=== PATIENT | male | born 1955 | race Caucasian/White ===

== ENCOUNTER 2017-08-30 12:28 | Emergency (ER) | payer OTHER ==
--- NOTE | 2017-08-30 12:43 | PDOC ---
History of Present Illness - General Chief Complaint: Laceration Stated Complaint: UPPER LIP LACERATION Time Seen by Provider: 08/30/17 12:33 History Source: Patient Exam Limitations: No Limitations - History of Present Illness Initial Comments: 08/30/17 12:41 61 y/o male sustained a lip laceration to the upper lip while playing basketball this morning. No LOC. UTD with Tetanus. No fever or chills. No neck pain. Timing/Duration: reports: just prior to arrival Severity: Yes: mild Past History - Past Medical History Allergies/Adverse Reactions: Allergies Allergy/AdvReac Type Severity Reaction Status Date / Time Penicillins Allergy Mild Itching Verified 08/30/17 12:32 Home Medications: Ambulatory Orders Levothyroxine Sodium [Synthroid] 200 mcg PO DAILY 08/30/17 Review of Systems - Review of Systems Able to Perform ROS?: Yes Is the patient limited Djib[place]ian proficient: No Constitutional: No: Chills, Fever Respiratory: No: Cough Integumentary: No: Erythema All Other Systems: Reviewed and Negative *Physical Exam - Physical Exam General Appearance: Yes: Nourished, Appropriately Dressed. No: Apparent Distress HEENT: positive: EOMI, BERTIN, Normal ENT Inspection, Normal Voice, Symmetrical Neck: positive: Trachea midline, Normal Thyroid, Supple. negative: Tender, Rigid Respiratory/Chest: positive: Lungs Clear, Normal Breath Sounds Cardiovascular: positive: Regular Rhythm, Regular Rate, S1, S2 Vascular Pulses: Femoral (R): 4+, Femoral (L): 4+, Carotid (R): 4+, Carotid (L) : 4+, Dorsalis-Pedis (R): 4+, Doralis-Pedis (L): 4+ Integumentary: positive: Normal Color, Dry, Warm, Other (small 0.5 cm lip upper laceration non bleeding with mild swelling noted) Neurologic: positive: hide tanner II-XII NML intact, Fully Oriented, Alert, Normal Mood/ Affect, Normal Response, Motor Strength 5/5 Procedures - Laceration/Wound Repair Right Upper Lip Wound Length: to 2.5 cm Wound Explored: clean, no foreign body present Wound's Depth, Shape: superficial Irrigated w/ Saline: Yes Betadine Prep: No Anesthesia: 1% Lidocaine (1 cc injected into upper lip wound) Wound Repaired With: Sutures (1 ) Suture Size/Type: 3:0, other (chromic) Number of Sutures: 1 Layer Closure: No Progress: 08/30/17 13:24 1 chromic #3 used to close upper lip, pt tolerated procedure well. Progress Note - Progress Note Progress Note: Lip laceration will require suturing. *DC/Admit/Observation/Transfer Diagnosis at time of Disposition: Laceration of lip Qualifiers: Encounter type: initial encounter Qualified Code(s): S01.511A - Laceration without foreign body of lip, initial encounter - Discharge Dispostion Disposition: HOME Condition at time of disposition: Stable Admit: No - Referrals - Patient Instructions Printed Discharge Instructions: DI for Laceration Repair Additional Instructions: Ice, Tylenol, rest Sutures will dissolve Cold food/liquids first 24 hrs If worsen return to ER - Post Discharge Activity
[2017-08-30 12:46] VITALS: BP 115/81; PULSE 68; TEMP 98.3; BMI 26.4
== END 2017-08-30 13:30 | disposition home or self-care (01) ==
LOC: FER 12:28
PROC: 0CQ0XZZ Repair Upper Lip, External Approach (ICD-10-PCS; principal; 2017-08-30)
DX: S01.511A Laceration without foreign body of lip, initial encounter (principal); W21.05XA Struck by basketball, initial encounter; Y93.67 Activity, basketball; Y92.9 Unspecified place or not applicable
CPT/HCPCS: 99282-25

== ENCOUNTER 2018-08-09 18:38 | Observation (INO) | payer OTHER ==
--- NOTE | 2018-08-09 19:25 | PDOC ---
History of Present Illness <Kayla Reeves - Last Filed: 08/09/18 22:45> - History of Present Illness Initial Comments: 08/09/18 22:38 The patient is a 62 year old male, with a significant PMH of fainting, who presents to the emergency department s/p 2 episodes of fainting approximately 1.5 hour ago. Patient notes he was on the train for approximately twenty minutes , when he began feeling progressively worsening nausea during his trip. He reports that he tried to get off the train to get some fresh air, and immediately fainted in the aisle of the train as soon as he stood up without any preceding symptoms.Pt states he lost consciousness for a few seconds. As per patient's , she reports that a witness said he fell straight backwards and hit his head on the floor. Witness also states that a few minutes after he regained consciousness, he sat down and then fainted a second time without trigger or warning. Per the witness, pt was very pale during episode. Patient states that he feels dehydrated, and notes he only had one bottle of water today. Patient notes that he has had multiple episodes of fainting previously: 1 episode over 50 years ago without any trigger, 1 episode over 40 years ago secondary to heat, alcohol consumption, and minimal food intake, and 1 episode 18 years ago secondary to back pain. He denies sick contacts, recent travel, generalized weakness, or LE edema. As per his daughter, he has been more stressed than usual this week related to his work. The patient denies palpitations, chest pain, shortness of breath, or headache. Denies fever, chills, vomit, diarrhea and constipation. Denies dysuria, frequency, urgency and hematuria. Allergies:Penicillins Past surgical history: None reported Social history: No reported <Timbo Sandhu - Last Filed: 08/09/18 23:12> - General Chief Complaint: Syncope/Near Syncope Stated Complaint: SYNCOPE Time Seen by Provider: 08/09/18 19:07 Past History <Kayla Reeves - Last Filed: 08/09/18 22:45> - Past Medical History COPD: No Thyroid Disease: Yes - Immunization History Immunization Up to Date: Yes - Suicide/Smoking/Psychosocial Hx Smoking History: Never smoked Have you smoked in the past 12 months: No Information on smoking cessation initiated: No Hx Alcohol Use: No Drug/Substance Use Hx: No Substance Use Type: None <Timbo Sandhu - Last Filed: 08/09/18 23:12> - Past Medical History Allergies/Adverse Reactions: Allergies Allergy/AdvReac Type Severity Reaction Status Date / Time Penicillins Allergy Mild Itching Verified 08/09/18 18:49 Home Medications: Ambulatory Orders Levothyroxine Sodium [Synthroid] 200 mcg PO DAILY 08/30/17 Review of Systems - Review of Systems Comments:: 08/09/18 22:42 GENERAL/CONSTITUTIONAL: +Dehydrated. +Pale. No fever or chills. No weakness. HEAD, EYES, EARS, NOSE AND THROAT: No change in vision. No ear pain or discharge. No sore throat. GASTROINTESTINAL: +Nausea. No vomiting, diarrhea or constipation. GENITOURINARY: No dysuria, frequency, or change in urination. CARDIOVASCULAR: No chest pain or shortness of breath. RESPIRATORY: No cough, wheezing, or hemoptysis. MUSCULOSKELETAL: No joint or muscle swelling or pain. No neck or back pain. SKIN: No rash NEUROLOGIC: +S/p 2 episodes of fainting. +Dizziness. +Lightheadedness. No headache, vertigo, or change in strength. ENDOCRINE: No increased thirst. No abnormal weight change. HEMATOLOGIC/LYMPHATIC: No anemia, easy bleeding, or history of blood clots. ALLERGIC/IMMUNOLOGIC: No hives or skin allergy. <Zeb Sandhurazakishan - Last Filed: 08/09/18 23:12> *Physical Exam - Vital Signs Last Vital Signs Temp Pulse Resp BP Pulse Ox 98.5 F 64 20 110/76 100 08/09/18 18:48 08/09/18 18:48 08/09/18 18:48 08/09/18 19:49 08/09/18 18:48 <Kayla Reeves - Last Filed: 08/09/18 22:45> - Vital Signs Last Vital Signs Temp Pulse Resp BP Pulse Ox 98.5 F 64 20 129/82 100 08/09/18 18:48 08/09/18 18:48 08/09/18 18:48 08/09/18 18:48 08/09/18 18:48 - Physical Exam Comments: 08/09/18 22:43 GENERAL: Awake, alert, and fully oriented, in no acute distress HEAD: No signs of trauma EYES: PERRLA, EOMI, sclera anicteric, conjunctiva clear ENT: +Dry mucous membranes. Hearing grossly normal, nares patent, oropharynx clear without exudates. NECK: Normal ROM, supple, no lymphadenopathy, JVD, or masses LUNGS: Breath sounds equal, clear to auscultation bilaterally. No wheezes, and no crackles HEART: Regular rate and rhythm, normal S1 and S2, no murmurs, rubs or gallops ABDOMEN: Soft, nontender, normoactive bowel sounds. No guarding, no rebound. No masses EXTREMITIES: Normal range of motion, no edema. No cords, erythema, or tenderness BACK: No midline spinal tenderness in cervical/thoracic/lumbar region NEUROLOGICAL: Normal speech, cranial nerves intact, negative pronator drift, 5/ 5 strength in all 4 extremities, normal sensation to light touch in all 4 extremities, normal cerebellar exam, normal gait, normal tone SKIN: Warm, Dry, normal turgor, no rashes or lesions noted. <Timbo Sandhu - Last Filed: 08/09/18 23:12> Moderate Sedation - Procedure Monitoring Vital Signs: Procedure Monitoring Vital Signs Temperature 98.5 F 08/09/18 18:48 Pulse Rate 64 08/09/18 18:48 Respiratory Rate 20 08/09/18 18:48 Blood Pressure 110/76 08/09/18 19:49 O2 Sat by Pulse Oximetry (%) 100 08/09/18 18:48 <Kayla Reeves - Last Filed: 08/09/18 22:45> - Procedure Monitoring Vital Signs: Procedure Monitoring Vital Signs Temperature 98.5 F 08/09/18 18:48 Pulse Rate 64 08/09/18 18:48 Respiratory Rate 20 08/09/18 18:48 Blood Pressure 129/82 08/09/18 18:48 O2 Sat by Pulse Oximetry (%) 100 08/09/18 18:48 <Zeb Sandhumnkishan - Last Filed: 08/09/18 23:12> Heart Score/ECG Review #1 08/09/18 19:32 Twelve-lead EKG was performed and reviewed by me. NSR, rate 65. Normal axis, incomplete RBBB, no IRIS or TWI <Zeb Sandhumna - Last Filed: 08/09/18 23:12> ED Treatment Course - LABORATORY CBC & Chemistry Diagram: 08/09/18 19:58 08/09/18 19:58 - ADDITIONAL ORDERS Additional order review: Laboratory Results 08/09/18 08/09/18 08/09/18 19:58 19:58 19:58 Sodium 134 L Potassium 4.3 Chloride 94 L Carbon Dioxide 30 H Anion Gap 10 BUN 24 H Creatinine 1.1 Creat Clearance w eGFR > 60 Random Glucose 114 H Calcium 9.3 Magnesium 2.0 Total Bilirubin 0.7 AST 27 ALT 29 Alkaline Phosphatase 86 Troponin I 0.04 B-Natriuretic Peptide 16.4 Total Protein 7.3 Albumin 4.3 TSH 9.85 H 08/09/18 19:58 RBC 4.81 MCV 94.8 MCHC 34.1 RDW 12.8 MPV 10.5 Neutrophils % No Result Required. Lymphocytes % No Result Required. - RADIOLOGY Radiograph Interpretation: EXAM#: TYPE/EXAM: RESULT: [id number] RAD/CHEST X-RAY PORTABLE IMPRESSION: No acute disease. Reported By: Galen Kidd MD 08/09/18 20:55 EXAM#: TYPE/EXAM: RESULT: [id number] CT/HEAD CT WITHOUT CONTRAST IMPRESSION: No evidence of acute intracranial pathology. Reported By: Galen Kidd MD 08/09/18 22:39 EXAM#: TYPE/EXAM: RESULT: [id number] CT/CERVICAL SPINE CT W/O CONTR IMPRESSION: No fracture or acute bony abnormalities. Reported By: Galen Kidd MD 08/09/18 22:44 08/09/18 22:45 - Medications Given in the ED: ED Medications Discontinued Medications Generic Name Dose Route Start Last Admin Trade Name Freq PRN Reason Stop Dose Admin Sodium Chloride 1,000 mls @ 1,000 mls/hr 08/09/18 19:28 08/09/18 20:05 Normal Saline - IV 08/09/18 20:27 1,000 mls/hr ASDIR STA Administration <Kayla Reeves - Last Filed: 08/09/18 22:45> - LABORATORY CBC & Chemistry Diagram: 08/09/18 19:58 08/09/18 19:58 <Timbo Sandhu - Last Filed: 08/09/18 23:12> Medical Decision Making - Medical Decision Making 08/09/18 19:33 62yo M hx syncope, hypothyroidism presents to the ED after 2 syncopal episodes in the setting of nausea. Vitals in ED wnl. Exam wnl other than dry MM. EKG non ischemic. Likely vasovagal syncope vs orthostatic syncope in the setting of dehydration. Also on ddx is cardiac arrhythmia. Plan to check orthostatics, labs , hydrate, monitor on tele and reassess. 08/09/18 23:09 Orthostatics negative Labs with leukocytosis to 17 CXR/UA with no infection CMP with elevated BUN, likely pre-renal Pt s/p 1L NS, feels better CTH/C-spine negative In light of sudden syncope, leukocytosis, negative orthostatics, plan for tele obs admission Case discussed with GANG PUSHER Cony Hayward, pt admitted to Dr. Lewis Case discussed in detail with admitting physician including history, physical exam and ancillary studies. Admitting physician has assumed care for the patient, will follow all pending diagnostics and will complete the evaluation and treatment. <Timbo Sandhu - Last Filed: 08/09/18 23:12> *DC/Admit/Observation/Transfer - Attestations Scribe Attestion: 08/09/18 22:24 Documentation prepared by RAIN Vega, acting as medical field representative for Timbo Sandhu MD. <Kayla Reeves - Last Filed: 08/09/18 22:45> - Discharge Dispostion Decision to Admit order: Yes - Attestations Physician Attestion: 08/09/18 23:12 I, Dr. Timbo Sandhu MD, attest that this document has been prepared under my direction and personally reviewed by me in its entirety. I further attest, that it accurately reflects all work, treatment, procedures and medical decision -making performed by me. <Timbo Sandhu - Last Filed: 08/09/18 23:12> Diagnosis at time of Disposition: Nausea, Syncope, Fall
[2018-08-09] MEDS ORDERED: SODIUM CHLORIDE 1,000 ML IV STA (19:28)
[2018-08-09 20:22] LABS: HEMATOCRIT 45.6 % (35.4-49); HEMOGLOBIN 15.6 GM/dl (11.7-16.9); MCH 32.4 pg (25.7-33.7); MCHC 34.1 g/dl (32.0-35.9); MEAN CELL VOLUME 94.8 fl (80-96); MEAN PLT VOLUME 10.5 fl (7.5-11.1); PLATELET COUNT 217 K/MM3 (134-434); RBC 4.81 M/mm3 (4.00-5.60); RDW 12.8 % (11.9-15.9); WHITE BLOOD COUNT 16.8 K/mm3 (4.0-10.8)
[2018-08-09 20:28] LABS: ALBUMIN 4.3 g/dl (3.5-5.0); ALK PHOS 86 U/L (32-92); ANION GAP 10 MMOL/L (8-16); BILIRUBIN,TOTAL 0.7 mg/dl (0.2-1.0); BLOOD UREA NITROGEN 24 mg/dl (7-18); CALCIUM 9.3 mg/dl (8.4-10.2); CHLORIDE 94 mmol/L (98-107); CO2 30 mmol/L (22-28); CREATININE 1.1 mg/dl (0.6-1.3); GLUCOSE,RANDOM 114 mg/dl (74-106); POTASSIUM 4.3 mmol/L (3.5-5.1); SGOT/AST 27 U/L (10-42); SGPT/ALT 29 U/L (10-40); SODIUM 134 mmol/L (136-145); TOT PROT 7.3 g/dl (6.4-8.3)
[2018-08-09 21:06] LABS: PLATELET ESTIMATE ADEQUATE
[2018-08-09 22:06] LABS: N-TERMINAL BNP 16.4 pg/ml (5-125)
[2018-08-09 22:39] LABS: PH,URINE 6.5 (4.5-8); URINE APPEARANCE Clear; URINE BILIRUBIN Negative (NEGATIVE); URINE COLOR Yellow; URINE GLUCOSE (UA) Negative (NEGATIVE); URINE KETONE Negative (NEGATIVE); URINE LEUK ESTERASE Negative (NEGATIVE); URINE NITRITE Negative (NEGATIVE); URINE PROTEIN Negative (NEGATIVE); URINE UROBILINOGEN 0.2 (0.2-1.0)
--- NOTE | 2018-08-09 23:30 | HP ---
CHIEF COMPLAINT: Syncope PCP: Doctor Not On Staff HISTORY OF PRESENT ILLNESS: 62 y/o man with a past medical history of Hypothyroidism, Syncope (2000). Who presents to the ED for syncopal episodes x2 today. Patient reports while on the [employer] train to home, he reports feeling nauseous, dizzy, flushed then, "clammy". Earlier in the evening he had a feeling of fullness. He reports when he stood up to get his jacket and belongings he passed out hitting his occiput. He reports when he came to he was assisted to a chair he reports slumping over having a second syncopal episode. Patient reports that the events occurred secs to < 1 minute. Patient had good memory recall of both events. Patient reports ambulating off the train, drinking some water. Patient reports being able to drive himself home, without incident. Patient denies fever, cough, VARGAS, SOB, CP, palpitations, AP, vomiting, diarrhea, melena, hematochezia, hematuria, dysuria. ER course was notable for: (1) Head CT- neg ICH (2) Troponin 0.04 (3) Chest Xray- no acute disease (4) EKG- NSR with incomplete RBBB (5) TSH 9.85 Recent Travel: None PAST MEDICAL HISTORY: See HPI PAST SURGICAL HISTORY: Thyroidectomy Tonsillectomy Social History: Smoking: Denies Alcohol: Denies Drugs: Denies Lives with Spouse, employed Computer Hardware Developer Family History: Mother: DM Father: CAD, double bypass, , CHF age 88 Paternal Uncle: Pancreatic Ca Allergies Penicillins Allergy (Mild, Verified 08/09/18 18:49) Itching HOME MEDICATIONS: Home Medications Medication Instructions Recorded Levothyroxine Sodium [Synthroid] 200 mcg PO DAILY 08/30/17 REVIEW OF SYSTEMS CONSTITUTIONAL: diaphoresis Absent: fever, chills, generalized weakness, malaise, loss of appetite, weight change HEENT: Absent: rhinorrhea, nasal congestion, throat pain, throat swelling, difficulty swallowing, mouth swelling, ear pain, eye pain, visual changes CARDIOVASCULAR: syncope Absent: chest pain, palpitations, irregular heart rate, lightheadedness, peripheral edema RESPIRATORY: Absent: cough, shortness of breath, dyspnea with exertion, orthopnea, wheezing, stridor, hemoptysis GASTROINTESTINAL: Absent: abdominal pain, abdominal distension, nausea, vomiting, diarrhea, constipation, melena, hematochezia GENITOURINARY: Absent: dysuria, frequency, urgency, hesitancy, hematuria, flank pain, genital pain MUSCULOSKELETAL: Absent: myalgia, arthralgia, joint swelling, back pain, neck pain SKIN: Absent: rash, itching, pallor HEMATOLOGIC/IMMUNOLOGIC: Absent: easy bleeding, easy bruising, lymphadenopathy, frequent infections ENDOCRINE: Absent: unexplained weight gain, unexplained weight loss, heat intolerance, cold intolerance NEUROLOGIC: dizziness Absent: headache, focal weakness or paresthesias, unsteady gait, seizure, mental status changes, bladder or bowel incontinence PSYCHIATRIC: Absent: anxiety, depression, suicidal or homicidal ideation, hallucinations. PHYSICAL EXAMINATION Vital Signs - 24 hr 08/09/18 08/09/18 08/09/18 18:48 19:45 19:47 Temperature 98.5 F Pulse Rate 64 Respiratory 20 Rate Blood Pressure 129/82 Blood Pressure 111/75 116/76 [Left] O2 Sat by Pulse 100 Oximetry (%) 08/09/18 19:49 Temperature Pulse Rate Respiratory Rate Blood Pressure Blood Pressure 110/76 [Left] O2 Sat by Pulse Oximetry (%) GENERAL: Awake, alert, and fully oriented, in no acute distress. HEAD: Normal with no signs of trauma. EYES: Pupils equal, round and reactive to light, extraocular movements intact, sclera anicteric, conjunctiva clear. No lid lag. EARS, NOSE, THROAT: Dry mucous membranes. Ears normal, nares patent, oropharynx clear without exudates. NECK: Normal range of motion, supple without lymphadenopathy, JVD, or masses. LUNGS: Breath sounds equal, clear to auscultation bilaterally. No wheezes, and no crackles. No accessory muscle use. HEART: Regular rate and rhythm, normal S1 and S2 without murmur, rub or gallop. ABDOMEN: Soft, nontender, not distended, normoactive bowel sounds, no guarding, no rebound, no masses. No hepatomegaly or splenomegaly. MUSCULOSKELETAL: Normal range of motion at all joints. No bony deformities or tenderness. No CVA tenderness. UPPER EXTREMITIES: 2+ pulses, warm, well-perfused. No cyanosis. No clubbing. No peripheral edema. LOWER EXTREMITIES: 2+ pulses, warm, well-perfused. No calf tenderness. No peripheral edema. NEUROLOGICAL: Cranial nerves II-XII intact. Normal speech. Gait not observed. PSYCHIATRIC: Cooperative. Good eye contact. Appropriate mood and affect. SKIN: Warm, dry, normal turgor, no rashes or lesions noted, normal capillary refill. Laboratory Results - last 24 hr 08/09/18 08/09/18 08/09/18 19:58 19:58 19:58 WBC 16.8 H RBC 4.81 Hgb 15.6 Hct 45.6 MCV 94.8 MCH 32.4 MCHC 34.1 RDW 12.8 Plt Count 217 MPV 10.5 Absolute Neuts (auto) 15.5 Neutrophils % No Result Required. Neutrophils % (Manual) 95.0 H* Lymphocytes % No Result Required. Lymphocytes % (Manual) 5.0 L Platelet Estimate Adequate Sodium 134 L Potassium 4.3 Chloride 94 L Carbon Dioxide 30 H Anion Gap 10 BUN 24 H Creatinine 1.1 Creat Clearance w eGFR > 60 Random Glucose 114 H Calcium 9.3 Magnesium Total Bilirubin 0.7 AST 27 ALT 29 Alkaline Phosphatase 86 Troponin I 0.04 B-Natriuretic Peptide 16.4 Total Protein 7.3 Albumin 4.3 TSH Urine Color Urine Appearance Urine pH Ur Specific [place] Urine Protein Urine Glucose (UA) Urine Ketones Urine Blood Urine Nitrite Urine Bilirubin Urine Urobilinogen Ur Leukocyte Esterase 08/09/18 08/09/18 19:58 22:30 WBC RBC Hgb Hct MCV MCH MCHC RDW Plt Count MPV Absolute Neuts (auto) Neutrophils % Neutrophils % (Manual) Lymphocytes % Lymphocytes % (Manual) Platelet Estimate Sodium Potassium Chloride Carbon Dioxide Anion Gap BUN Creatinine Creat Clearance w eGFR Random Glucose Calcium Magnesium 2.0 Total Bilirubin AST ALT Alkaline Phosphatase Troponin I B-Natriuretic Peptide Total Protein Albumin TSH 9.85 H Urine Color Yellow Urine Appearance Clear Urine pH 6.5 Ur Specific [place] 1.020 Urine Protein Negative Urine Glucose (UA) Negative Urine Ketones Negative Urine Blood Negative Urine Nitrite Negative Urine Bilirubin Negative Urine Urobilinogen 0.2 Ur Leukocyte Esterase Negative ASSESSMENT/PLAN: This is a 62 y/o man with a PMHx of Hypothyroid s/p Thyroidectomy (2002). Placed on Telemetry Observation for Syncope for further evaluation of their emergent condition. Plan: See Problem List FEN PO fluids as tolerated Replete lytes as indicated Regular Diet DVT ppx OOB SCDs Consider AC if LOS > 48 hrs Code Status: Full Code Dispo: Observation Problem List - Problem (1) Syncope Assessment/Plan: Likely due to Arrhythmia vs Dehydration Cardiac monitoring Serial Enzymes Head CT- neg ICH, no mass or lesions Chest Xray- no acute pathology EKG- NSR with incomplete RBBB, no other study available to compare Appreciate Cardiology consult Appreciate Neurology consult Echo in am r/o any significant abnormalities Carotid Doppler r/o Stenosis CBC, BMP, Lipid Panel, HgbA1c in am Neurochecks Fall Precautions Seizure Precautions Gentle IVF Code(s): R55 - SYNCOPE AND COLLAPSE (2) Fall Assessment/Plan: Likely secondary to Syncopal Episode Head CT- neg ICH C- Spine Xray- neg Fx or subluxation Fall Precautions Code(s): W19.XXXA - UNSPECIFIED FALL, INITIAL ENCOUNTER (3) Hypothyroidism Assessment/Plan: TSH 9.85 Will increase Levothyroxine from 200mcg to 225mcg Patient will need to f/u with PCP Code(s): E03.9 - HYPOTHYROIDISM, UNSPECIFIED Visit type - Emergency Visit Emergency Visit: Yes ED Registration Date: 08/09/18 Care time: The patient presented to the Emergency Department on the above date and was hospitalized for further evaluation of their emergent condition. - New Patient This patient is new to me today: Yes Date on this admission: 08/09/18 - Critical Care Critical Care patient: No
[2018-08-10] MEDS ORDERED: SODIUM CHLORIDE 1,000 ML IV SCH (01:30)
[2018-08-10] MEDS ORDERED: LEVOTHYROXINE NA 200 MCG TABLET PO SCH (07:00)
[2018-08-10] MEDS ORDERED: LEVOTHYROXINE 125 MCG, LEVOTHYROXINE 100 MCG PO SCH (07:15)
[2018-08-10 07:21] LABS: INR 1.06 (0.83-1.09); PROTHROMBIN TIME (PATIENT) 12.5 SEC (9.7-13.0)
[2018-08-10] MEDS ORDERED: LEVOTHYROXINE NA 100 MCG TABLET (FP) ONE (07:21)
[2018-08-10] MEDS ORDERED: LEVOTHYROXINE NA 125 MCG TABLET (FP) ONE (07:21)
[2018-08-10 07:37] LABS: ANION GAP 8 MMOL/L (8-16); BLOOD UREA NITROGEN 17 mg/dL (7-18); CALCIUM 8.4 mg/dL (8.5-10.1); CHLORIDE 101 mmol/L (98-107); CO2 28 mmol/L (21-32); CREATININE 0.9 mg/dL (0.55-1.3); GLUCOSE,RANDOM 93 mg/dL (74-106); POTASSIUM 4.2 mmol/L (3.5-5.1); SODIUM 137 mmol/L (136-145)
[2018-08-10 07:56] LABS: BASO % 0.3 % (0-2.0); EOS % 0.5 % (0-4.5); HEMATOCRIT 40.7 % (35.4-49); HEMOGLOBIN 14.3 GM/dL (11.7-16.9); LYMPH % 4.6 % (8-40); MCH 32.5 pg (25.7-33.7); MCHC 35.1 g/dl (32.0-35.9); MEAN CELL VOLUME 92.6 fl (80-96); MEAN PLT VOLUME 10.5 fl (7.5-11.1); MONO % 3.7 % (3.8-10.2); NEUT % 90.9 % (42.8-82.8); PLATELET COUNT 179 K/MM3 (134-434); RBC 4.39 M/mm3 (4.00-5.60); RDW 13.7 % (11.9-15.9); WHITE BLOOD COUNT 11.7 K/mm3 (4.0-10.0)
[2018-08-10] MEDS ORDERED: MULTIVITAMINS (DAILY MVI) TABLET (FP) PO SCH (10:00)
--- NOTE | 2018-08-10 10:05 | EKG ---
Test Reason : Blood Pressure : / mmHG Vent. Rate : 065 BPM Atrial Rate : 065 BPM P-R Int : 172 ms QRS Dur : 116 ms QT Int : 436 ms P-R-T Axes : 078 068 043 degrees QTc Int : 453 ms POOR DATA QUALITY, INTERPRETATION MAY BE ADVERSELY AFFECTED NORMAL SINUS RHYTHM POSSIBLE LEFT ATRIAL ENLARGEMENT INCOMPLETE RIGHT BUNDLE BRANCH BLOCK BORDERLINE ECG NO PREVIOUS ECGS AVAILABLE Confirmed by Pawan Joy MD ([id number]) on 08/10/2018 10:05:20 AM Referred By: DR LIM Confirmed By:Pawan Joy MD
--- NOTE | 2018-08-10 10:42 | CON.NEURO ---
Consult - Alcohol/Substance Use Hx Alcohol Use: No - Smoking History Smoking history: Never smoked Have you smoked in the past 12 months: No Home Medications - Allergies Allergies/Adverse Reactions: Allergies Allergy/AdvReac Type Severity Reaction Status Date / Time Penicillins Allergy Mild Itching Verified 08/09/18 18:49 - Home Medications Home Medications: Ambulatory Orders Levothyroxine Sodium [Synthroid] 200 mcg PO DAILY 08/30/17 Physical Exam-Neuro Vital Signs: Vital Signs Temperature 98.5 F 08/09/18 18:48 Pulse Rate 85 08/10/18 08:40 Respiratory Rate 18 08/10/18 08:40 Blood Pressure 122/78 08/10/18 08:40 O2 Sat by Pulse Oximetry (%) 99 08/10/18 08:40 Labs: CBC, BMP 08/10/18 06:00 08/10/18 06:00 INR, PTT INR 1.06 (0.83-1.09) 08/10/18 06:00 Assessment/Plan cc Episode of passing out on Aug HPI 62 year old male history of Hypothyroidism, 4-5 syncope over 25 year in his life. He was coming back from work and fell nauseated and passed out. He lost consiousness and hit his head. He denies any headhace, dysphagia, dysarthria, diplopia. There is no motor weakness. He denies any Post ictal confusion, incontinence , tongue bite. His ct head and carotid ultrasound si normal. PMH as above. PAST SURGICAL HISTORY: Thyroidectomy Tonsillectomy Social History: No toxic Habits Lives with Spouse, employed Commercial Artist Lettering Family History: Mother: DM Father: CAD, double bypass, , CHF age 88 Paternal Uncle: Pancreatic Ca Allergies Penicillins Allergy (Mild, Verified 08/09/18 18:49) Itching HOME MEDICATIONS: Home Medications Medication Instructions Recorded Levothyroxine Sodium [Synthroid] 200 mcg PO DAILY 08/30/17 ROS reviewed in chart NEUROLOGICAL EXAMIATION Alert oriented x 3 speech is normal, no neck stiffness CN all intact , eomi, pupils reactive, no face asymmetry , vf normal by confrontatio, hearing is normal Motor 5/5 all intact, ftn, htn is normal, no rigidity sensation is normal ct head is normal Assessment: 62 year old male history of hypothyroidism, 4-5 syncope in his life time. He had syncopal episode. There is no evidence suggestive of epileptic seizure or stroke PLAN: From neuro point of view , no furhter work up needed - Advice against driving and disclose LOC information to DMV. Thanking you so much Marco Velasco MD
--- NOTE | 2018-08-10 11:34 | CON.CARD ---
Consult Consult Specialty:: Cardiology Referred by:: ER (David Morton) Reason for Consultation:: Cardiac evaluation - History of Present Illness Chief Complaint: Syncope History of Present Illness: Patient is a 62 year old male with underlying history of hypothyroidism on replacement therapy who presents after a syncopal episode yesterday. [facility] [place] [facility] [place] [facility] [employer] when he began to feel nausea, dizziness and clammy feeling. He also felt fullness in his stomach. He stood up to exit the train when he passed out falling backwards hitting the occipital part of his head on the floor of the train. He was helped by fellow passengers and finally got out to his train stop in [place]. He managed to drive home without any incident and when he arrived his saw him to be very pale. His drove him to the hospital for further evaluation. He denies chest pain, SOB or palpitations. He denies paroxysmal nocturnal dyspnea or orthopnea. He denies fever or chills. He denies headache. By the time he arrived to ER, he denied any further nausea, vomiting. He denies diarrhea or abdominal pain. He feels better this am and had a full breakfast. He has had one other episode of syncope but it was due to dehydration. Of note he states he had consumed a lot of sodium over the weekend and drank alcohol. However, he was able to play basketball yesterday without any problem. - History Source History Provided By: Patient, Family Member, Medical Record Limitations to Obtaining History: No Limitations - Past Medical History Endocrine: Yes: Hypothyroidism - Past Surgical History Additional Surgical History: Thyroidectomy - Alcohol/Substance Use Hx Alcohol Use: Yes History of Substance Use: reports: None - Smoking History Smoking history: Never smoked Have you smoked in the past 12 months: No Home Medications - Allergies Allergies/Adverse Reactions: Allergies Allergy/AdvReac Type Severity Reaction Status Date / Time Penicillins Allergy Mild Itching Verified 08/09/18 18:49 - Home Medications Home Medications: Ambulatory Orders Levothyroxine Sodium [Synthroid] 200 mcg PO DAILY 08/30/17 Family Disease History - Family Disease History Family Disease History: Heart Disease: Father (CABG) Other Family History: History of DM Review of Systems - Review of Systems Constitutional: denies: Chills, Fever Cardiovascular: denies: Chest Pain, Palpitations, Shortness of Breath Respiratory: denies: Cough, Hemoptysis, Orthopnea, PND, SOB, SOB on Exertion, Wheezing Gastrointestinal: reports: Nausea. denies: Abdominal Pain, Constipation, Diarrhea, Melena, Rectal Bleeding, Vomiting Genitourinary: denies: Dysuria, Hematuria Musculoskeletal: denies: Back Pain, Joint Pain Neurological: reports: Dizziness, Syncope. denies: Change in Speech, Confusion , Headache, Numbness, Parasthesia, Seizure, Unsteady Gait, Weakness Vital Signs: Vital Signs Temperature 98.5 F 08/09/18 18:48 Pulse Rate 85 08/10/18 08:40 Respiratory Rate 18 08/10/18 08:40 Blood Pressure 122/78 08/10/18 08:40 O2 Sat by Pulse Oximetry (%) 99 08/10/18 08:40 Constitutional: Yes: Well Nourished Eyes: Yes: PERRL HENT: Yes: Atraumatic Neck: Yes: Supple Respiratory: Yes: CTA Bilaterally Gastrointestinal: Yes: Normal Bowel Sounds, Soft. No: Tenderness Cardiovascular: Yes: Regular Rate and Rhythm JVD: No Carotid Bruit: No PMI: Non-Displaced Heart Sounds: Yes: S1, S2. No: Gallop Murmur: No: Systolic Murmur, Diastolic Murmur Edema: No Neurological: Yes: WNL - Other Data Labs, Other Data: CBC, BMP 08/10/18 06:00 08/10/18 06:00 INR, PTT INR 1.06 (0.83-1.09) 08/10/18 06:00 Troponin, BNP 08/09/18 08/09/18 08/09/18 06:36 19:58 19:58 Troponin I 0.03 0.04 B-Natriuretic Peptide 16.4 08/10/18 06:00 Troponin I 0.02 B-Natriuretic Peptide Laboratory Results - last 24 hr 08/09/18 08/09/18 08/09/18 06:36 06:36 19:58 WBC RBC Hgb Hct MCV MCH MCHC RDW Plt Count MPV Absolute Neuts (auto) Neutrophils % Neutrophils % (Manual) Lymphocytes % Lymphocytes % (Manual) Monocytes % Eosinophils % Basophils % Nucleated RBC % Platelet Estimate PT with INR INR Sodium 134 L Potassium 4.3 Chloride 94 L Carbon Dioxide 30 H Anion Gap 10 BUN 24 H Creatinine 1.1 Creat Clearance w eGFR > 60 Random Glucose 114 H Lactic Acid Calcium 9.3 Phosphorus Magnesium Total Bilirubin 0.7 AST 27 ALT 29 Alkaline Phosphatase 86 Troponin I 0.03 B-Natriuretic Peptide 16.4 Total Protein 7.3 Albumin 4.3 TSH Urine Color Yellow Urine Appearance Clear Urine pH 6.5 Ur Specific [place] 1.020 Urine Protein Negative Urine Glucose (UA) Negative Urine Ketones Negative Urine Blood Negative Urine Nitrite Negative Urine Bilirubin Negative Urine Urobilinogen 0.2 Ur Leukocyte Esterase Negative 08/09/18 08/09/18 08/09/18 19:58 19:58 19:58 WBC 16.8 H RBC 4.81 Hgb 15.6 Hct 45.6 MCV 94.8 MCH 32.4 MCHC 34.1 RDW 12.8 Plt Count 217 MPV 10.5 Absolute Neuts (auto) 15.5 Neutrophils % No Result Required. Neutrophils % (Manual) 95.0 H* Lymphocytes % No Result Required. Lymphocytes % (Manual) 5.0 L Monocytes % Eosinophils % Basophils % Nucleated RBC % Platelet Estimate Adequate PT with INR INR Sodium Potassium Chloride Carbon Dioxide Anion Gap BUN Creatinine Creat Clearance w eGFR Random Glucose Lactic Acid Calcium Phosphorus Magnesium 2.0 Total Bilirubin AST ALT Alkaline Phosphatase Troponin I 0.04 B-Natriuretic Peptide Total Protein Albumin TSH 9.85 H Urine Color Urine Appearance Urine pH Ur Specific [place] Urine Protein Urine Glucose (UA) Urine Ketones Urine Blood Urine Nitrite Urine Bilirubin Urine Urobilinogen Ur Leukocyte Esterase 08/10/18 08/10/18 08/10/18 06:00 06:00 06:00 WBC 11.7 H RBC 4.39 Hgb 14.3 Hct 40.7 MCV 92.6 MCH 32.5 MCHC 35.1 RDW 13.7 Plt Count 179 MPV 10.5 Absolute Neuts (auto) 10.7 H Neutrophils % 90.9 H Neutrophils % (Manual) Lymphocytes % 4.6 L Lymphocytes % (Manual) Monocytes % 3.7 L Eosinophils % 0.5 Basophils % 0.3 Nucleated RBC % 0 Platelet Estimate PT with INR 12.50 INR 1.06 Sodium 137 Potassium 4.2 Chloride 101 Carbon Dioxide 28 Anion Gap 8 BUN 17 Creatinine 0.9 Creat Clearance w eGFR > 60 Random Glucose 93 Lactic Acid Calcium 8.4 L Phosphorus 3.0 Magnesium Total Bilirubin AST ALT Alkaline Phosphatase Troponin I B-Natriuretic Peptide Total Protein Albumin TSH Urine Color Urine Appearance Urine pH Ur Specific [place] Urine Protein Urine Glucose (UA) Urine Ketones Urine Blood Urine Nitrite Urine Bilirubin Urine Urobilinogen Ur Leukocyte Esterase Sinus rhythm with incomplete RBBB Echo: Pending Imaging - Results Chest X-ray: Report Reviewed (Unremarkable) Cat Scan: Report Reviewed (Head CT and Cervical spine CT unremarkable) Ultrasound: Report Reviewed (Carotid Doppler: mild disease) EKG: Report Reviewed Problem List - Problems (1) Leukocytosis, unspecified Code(s): D72.829 - ELEVATED WHITE BLOOD CELL COUNT, UNSPECIFIED Qualifiers: Leukocytosis type: unspecified Qualified Code(s): D72.829 - Elevated white blood cell count, unspecified (2) Fall Code(s): W19.XXXA - UNSPECIFIED FALL, INITIAL ENCOUNTER Qualifiers: Encounter type: initial encounter Qualified Code(s): W19.XXXA - Unspecified fall, initial encounter (3) Hypothyroidism Code(s): E03.9 - HYPOTHYROIDISM, UNSPECIFIED Qualifiers: Hypothyroidism type: unspecified Qualified Code(s): E03.9 - Hypothyroidism , unspecified (4) Syncope Code(s): R55 - SYNCOPE AND COLLAPSE Qualifiers: Syncope type: unspecified Qualified Code(s): R55 - Syncope and collapse Assessment/Plan 1. Syncope, etiology to be determined 2. Hypothyroidism 3. Leukocytosis, etiology unclear ? inflammation 4. Hyponatremia - now better PLAN: 1. Cardiac enzymes are negative 2. Echocardiography to assess LV/RV and valvular function 3. Thyroid replacement therapy 4. Follow WBC 5. Check for orthostasis and continue hydration 6. If above negative and if he is not orthostatic and if he remains asymptomatic , additional work up can be done as outpatient. Consider outpatient extended loop monitoring Further plans are to follow [employer] [employer] MD
[2018-08-10 14:24] VITALS: BMI 27.1
[2018-08-10 15:04] VITALS: TEMP 98.9
[2018-08-10 15:16] VITALS: BP 120/77; PULSE 81
--- NOTE | 2018-08-10 15:20 | ECHO ---
Name: RUBEN COLLINS Exam:Adult Echocardiogram Study Date: 08/10/2018 12:46 PM Age: 62 yrs Reason For Study: SYNCOPE Height: 71 in Weight: 190 lb BSA: 2.1 m2 MMode/2D Measurements & Calculations IVSd: 1.0 cm EDV(Teich): 131.3 ml LVIDd: 5.2 cm ESV(Teich): 35.8 ml LVIDs: 3.0 cm LVPWd: 0.80 cm Doppler Measurements & Calculations MV E max lucita: 60.9 cm/sec MV A max lucita: 63.0 cm/sec MV dec slope: 336.6 cm/sec2 MV E/A: 0.97 Ao V2 max: 126.4 cm/sec LV V1 max P.2 mmHg Ao max P.4 mmHg LV V1 max: 89.4 cm/sec TR max lucita: 230.4 cm/sec TR max P.2 mmHg Procedure A complete two-dimensional transthoracic echocardiogram was performed (2D, M-mode, Doppler and color flow Doppler). Left Ventricle The left ventricular size, thickness and function are normal. Ejection Fraction = 65%. The transmitra l spectral Doppler flow pattern is suggestive of impaired LV relaxation. The left ventricular wall anibal on is normal. Right Ventricle The right ventricle is normal in size and function. Atria Normal left and right atrial size and function. Mitral Valve There is mild mitral valve thickening. There is trace mitral regurgitation. Tricuspid Valve The tricuspid valve is normal in structure and function. There is mild tricuspid regurgitation. Right ventricular systolic pressure is 25 mmhg. Aortic Valve There is mild aortic valve thickening. Pulmonic Valve The pulmonic valve is normal in structure and function. Great Vessels The aortic root is normal size. Normal aortic arch, descending and ascending aorta. Pericardium/Pleura There is no pericardial effusion. There is no pleural effusion. Interpretation Summary The left ventricular size, thickness and function are normal Ejection Fraction = 65%. The transmitral spectral Doppler flow pattern is suggestive of impaired LV relaxation. There is mild mitral valve thickening. There is trace mitral regurgitation. There is mild tricuspid regurgitation. Right ventricular systolic pressure is 25 mmhg. There is mild aortic valve thickening. MD Pawan Joy 08/10/2018 03:19 PM
== END 2018-08-10 18:53 | disposition home or self-care (01) ==
LOC: FER 18:38 → FM/S 23:13 → UNDOADMOB 08-10 13:13 → FM/S 08-10 13:13
PROVIDERS: ADMIT Internal Medicine; ATTEND Nurse Practitioner Acute Care
PROC: 3E0337Z Introduction of Electrolytic and Water Balance Substance into Peripheral Vein, Percutaneous Approach (ICD-10-PCS; principal; 2018-08-09)
DX: R55 Syncope and collapse (principal); W01.198A Fall on same level from slipping, tripping and stumbling with subsequent striking against other object, initial encounter; Y93.89 Activity, other specified; Y92.815 Train as the place of occurrence of the external cause; Y99.8 Other external cause status; D72.829 Elevated white blood cell count, unspecified; E87.1 Hypo-osmolality and hyponatremia; E03.9 Hypothyroidism, unspecified; E89.0 Postprocedural hypothyroidism; Z88.0 Allergy status to penicillin
CPT/HCPCS: 36415; 70450-TC; 71045-TC-FY; 72125-TC; 80048; 80053; 81003; 83605; 83735; 83880; 84100; 84443; 84484; 85025; 85610; 87040; 87086; 87804; 93005; 93306-TC; 93880-TC; 99285-25; G0378; J7030